=== PATIENT | female | born 1970 | race Hispanic/Latino ===

== ENCOUNTER 2024-10-19 14:59 | Emergency (ER) | payer BC, OTHER ==
[~2024-10-19] VITALS: Ht 162.6 cm; Wt 73.6 kg
[~2024-10-19 14:59] MED LIST: DICYCLOMINE HCL20 MG PO; HYDROCODON-ACE1 EAC9; LOSARTAN POTASS25 MG PO; METHOCARBAMOL750 MG PO
[2024-10-19] MEDS ORDERED: DIPHENHYDRAMINE25 M2 PO (15:24)
[2024-10-19] MEDS ORDERED: NYSTATIN15 GM TOP (15:24)
[2024-10-19] MEDS ORDERED: DIFLUCAN100 MG PO (15:30)
[2024-10-19 15:41] VITALS: PULSE 71; RESP 16; TEMP 98.2; O2SAT 96
== END 2024-10-19 15:41 | disposition home or self-care (01) ==
LOC: FSED 15:06
DX: B37.2 Candidiasis of skin and nail (principal); I10 Essential (primary) hypertension
CPT/HCPCS: 99283